=== PATIENT | male | born 1980 | race Caucasian/White ===

== ENCOUNTER 2017-05-31 06:46 | Emergency (ER) | payer SELFPAY ==
[2017-05-31] MEDS ORDERED: ceFAZolin SODIUM 1 GM VIAL IM ONE (07:07)
[2017-05-31] MEDS ORDERED: TETANUS,DIPHTHERIA,PERTUSSIS 1 EA SYG IM ONE (07:07)
--- NOTE | 2017-05-31 07:07 | ED.PDOC ---
History of Present Illness - General Chief Complaint: Lower Extremity Injury Stated Complaint: nail puncture, left foot Time Seen by Provider: 05/31/17 07:05 Additional Information: STEPPED ON NAIL. WENT THROUGH SHOE INTO FOOT. PENETRATED APPROX 1-1.5 INCHES - History of Present Illness Timing/Duration: other - 2 DAYS HYACINTH Severity: moderate Improving Factors: nothing Associated Symptoms: other - NOW HAS DEVELOPED INCREASING PAIN AND SWELLLING Allergies/Adverse Reactions: Allergies NO KNOWN ALLERGY Allergy (Verified 05/31/17 06:59) Home Medications: Ambulatory Orders Cephalexin Monohydrate [Keflex] 500 mg PO TID #30 cap 05/31/17 Fluoxetine HCl [PROzac] 20 mg PO DAILY 05/31/17 Review of Systems - Review of Systems Constitutional: Denies: chills, fever Respiratory: Denies: cough, short of breath Gastrointestinal/Abdominal: Denies: nausea, vomiting Musculoskeletal: States: other - PAIN AN SWELLING TO FOOT Skin: States: other - NO ERYTHEMA Past Medical History (General) - Patient Medical History Hx Seizures: No Hx Stroke: No Hx Dementia: No Hx Asthma: No Hx of COPD: No Hx Cardiac Disorders: No Hx Congestive Heart Failure: No Hx Pacemaker: No Hx Hypertension: No Hx Thyroid Disease: No Hx Diabetes: No Hx Gastroesophageal Reflux: No Hx Renal Disease: No Hx Cancer: No Hx of HIV: No Hx Hepatitis C: No Hx MRSA: No Surgical History: no surgical history - Vaccination History Hx Tetanus, Diphtheria Vaccination: No Hx Influenza Vaccination: No Hx Pneumococcal Vaccination: No Immunizations Up to Date: No - Social History Hx Tobacco Use: Yes Hx Chewing Tobacco Use: No Hx Alcohol Use: No Hx Substance Use: No Hx Substance Use Treatment: No Hx Depression: Yes Feels Threatened In Home Enviroment: No Feels Threatened In a Relationship: No Hx Physical Abuse: No Hx Emotional Abuse: No Hx Suspected Abuse: No Family Medical History - Family History Mother Family History: Unknown Physical Exam - Physical Exam General Appearance: Alert, No apparent distress Eye Exam: bilateral normal Ears, Nose, Throat: hearing grossly normal, normal ENT inspection Peripheral Pulses: dorsalis pedis,left: 2+, posterior tibialis,left: 2+ Back Exam: normal inspection, no vertebral tenderness Extremity: normal range of motion, normal capillary refill, other - SMALL PUNCTURE WOUND OVER DISTAL METATARSAL. (1). MILD SWELLING, MOD TTP, NO ERYTHEMA , INDURATION OR FLUCTUENCE. Skin Exam: normal color, warm/dry Progress - Progress Progress: 05/31/17 08:31 XRAY SHOWS POSSIBLE VERY SMALL FB ON LAT ONLY. VERY SUPERFICIAL EXAMINED FOOT AGAIN IS MODERATELY TTP. WILL NOT EXPLORE FEEL IS PROBABLY ARTIFACT. WILL PLACE ON WARM SOAKS PO ABX AND F/U - EKG/XRAY/CT XRAY: FOOT: NO FX, SMALL PUNCTATE AREA ON LATERAL ONLY, POSS SMALL FB Departure - Departure Clinical Impression: Puncture wound ICD-10 Supporting Text: PLANTAR ASPECT LEFT FOOT Time of Disposition: 08:33 Disposition: Discharge to Home or Self Care Condition: Excellent Departure Forms: ED Discharge - Pt. Copy, Patient Portal Self Enrollment Instructions: DI for Puncture Wound Prescriptions: Cephalexin Monohydrate [Keflex] 500 mg PO TID #30 cap Home Medications: Ambulatory Orders Cephalexin Monohydrate [Keflex] 500 mg PO TID #30 cap 05/31/17 Fluoxetine HCl [PROzac] 20 mg PO DAILY 05/31/17
[2017-05-31] MEDS ORDERED: WATER FOR INJ 10 ML VIAL INJ ONE (07:12)
--- NOTE | 2017-05-31 07:24 | RAD ---
EXAM DESCRIPTION: Foot,Left 3 Views CLINICAL HISTORY: puncture wound COMPARISON: None. IMPRESSION: 3 views of the left foot shows no evidence of acute fracture, focal bone destruction, or joint dislocation. There is a tiny 2 mm focus of increased density in the cutaneous to subcutaneous soft tissue plantar to the proximal calcaneus only seen on lateral projection that could represent foreign body versus film screen artifact. Lateral projection also shows a tiny focus of increased density on the palmar aspect of the distal foot at the level of the metatarsal heads that could represent foreign body possibly seen between the first and second metatarsals on the oblique view. Electronically signed by: Rahul Cruz MD 05/31/2017 7:23 AM CDT
[2017-05-31 09:39] VITALS: BP 138/90; TEMP 97.7; O2SAT 99
== END 2017-05-31 09:18 | disposition home or self-care (01) ==
LOC: ER 06:46
DX: S91.332A Puncture wound without foreign body, left foot, initial encounter (principal); Z23 Encounter for immunization; Z87.891 Personal history of nicotine dependence; W45.0XXA Nail entering through skin, initial encounter; Y92.9 Unspecified place or not applicable
CPT/HCPCS: 73630; 90715; A4216; J0690

== ENCOUNTER 2018-08-18 15:43 | Emergency (ER) | payer OTHER ==
[2018-08-18 16:02] VITALS: TEMP 97.3
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
--- NOTE | 2018-08-18 17:02 | RAD ---
EXAM DESCRIPTION: Abdomen Flat Upright CLINICAL HISTORY: SWALLOWED FB COMPARISON: None. TECHNIQUE: AP supine and upright views the abdomen FINDINGS: The abdominal bowel gas pattern is normal. No evidence of free intraperitoneal air is seen. No air-fluid levels are observed. No organomegaly is detected. No pathologic calcification is observed. No radiopaque foreign body is detected. IMPRESSION: Normal abdomen. No foreign body is detected. Electronically signed by: Norman Nixon MD 08/18/2018 5:01 PM CDT
[2018-08-18 19:39] VITALS: BP 138/102; O2SAT 99
== END 2018-08-18 18:00 | disposition home or self-care (01) ==
LOC: ER 15:43
DX: T50.904A Poisoning by unspecified drugs, medicaments and biological substances, undetermined, initial encounter (principal); F32.9 Major depressive disorder, single episode, unspecified; Z87.891 Personal history of nicotine dependence; Z79.899 Other long term (current) drug therapy